=== PATIENT | female | born 1985 | race American Indian/Alaskan Native ===

== ENCOUNTER 2019-06-06 08:48 | Emergency (ER) | payer MEDICAID ==
[2019-06-06 08:52] VITALS: BP 147/89
[2019-06-06] MEDS ORDERED: IBUPROFEN PO ONE (09:26)
--- NOTE | 2019-06-06 09:28 | Emergency Department Report ---
ED Back Pain/Injury HPI - General Chief Complaint: Extremity Injury, Upper Stated Complaint: LT WRIST PAIN Time Seen by Provider: 06/06/19 09:22 Source: patient Limitations: No Limitations - History of Present Illness Initial Comments: 34 yo comes to er co left wrist pain w no trauma. hx carpel tunnel. - Related Data Previous Rx's Medication Instructions Recorded Last Taken Type Antipyrine/Benzocaine/Glycerin 2 drops AU Q4HR PRN #1 bottle 10/28/13 Unknown Rx [Auralgan] Ciprofloxacin HCl [Cipro] 500 mg PO Q12H #20 tab 10/28/13 Unknown Rx Ciprofloxacin HCl/Dexameth 4 drop OT BID #1 drops.susp 10/28/13 Unknown Rx [Ciprodex Otic Suspension 0.3/0.1%] Allergies Allergy/AdvReac Type Severity Reaction Status Date / Time No Known Allergies Allergy Verified 10/28/13 00:34 ED Review of Systems ROS: Stated complaint: LT WRIST PAIN Other details as noted in HPI Comment: All other systems reviewed and negative ED Past Medical Hx - Past Medical History carpel tunnel Family history: no significant family history - Social History Smoking Status: Current Every Day Smoker Alcohol use: rarely ED Back Pain Physical Exam - Exam General: Vital signs noted. No distress. Alert and acting appropriately. pos. sherin on exam of l hand pain over tendon with palpation rad/ulnar pulses plus 2 no parasthesis no snuff box tenderness rapid cap refill Back/Abdomen: No Abdominal Tenderness Neuro: Yes Normal Sensation, Yes Normal DTR's, Yes Normal Gait, No Motor Weakness ED Course Vital Signs 06/06/19 08:49 Temperature 98.3 F Pulse Rate 91 H Respiratory 14 Rate Blood Pressure 147/89 O2 Sat by Pulse 100 Oximetry ED Medical Decision Making - Medical Decision Making pt lost her wrist splint- thus she comes to ER this is a chronic issue no new trauma neurovasc intact dc home with soft splint to l wrist and ortho follow up. NSAIDs prn Vital Signs 06/06/19 08:49 Temperature 98.3 F Pulse Rate 91 H Respiratory 14 Rate Blood Pressure 147/89 O2 Sat by Pulse 100 Oximetry - Differential Diagnosis a/c wrist pain Critical care attestation.: If time is entered above; I have spent that time in minutes in the direct care of this critically ill patient, excluding procedure time. ED Disposition Clinical Impression: Carpal tunnel syndrome, Tendonitis Disposition: DC- TO HOME OR SELFCARE Is pt being admited?: No Does the pt Need Aspirin: No Condition: Stable Instructions: Carpal Tunnel Syndrome (ED) Additional Instructions: over the counter motrin for pain wrist splint during the day ice at night follow up with ortho MD referral below Referrals: MARVIN LIM MD [Staff Physician] - 3-5 Days Time of Disposition: 09:28
== END 2019-06-06 09:43 | disposition home or self-care (01) ==
LOC: ED 08:48
DX: G56.02 Carpal tunnel syndrome, left upper limb (principal); F17.200 Nicotine dependence, unspecified, uncomplicated; M77.9 Enthesopathy, unspecified

== ENCOUNTER 2021-11-03 16:32 | Emergency (ER) | payer MEDICAID ==
[2021-11-03 17:37] VITALS: BP 163/102
[2021-11-03] MEDS ORDERED: traMADol 50 MG TAB PO ONE (20:31)
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
[2021-11-03 23:13] LABS: HCG Qualitative,Urine Negative (Negative)
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
== END 2021-11-04 01:58 | disposition home or self-care (01) ==
LOC: ED 16:32
DX: S63.91XA Sprain of unspecified part of right wrist and hand, initial encounter (principal); S16.1XXA Strain of muscle, fascia and tendon at neck level, initial encounter; S39.012A Strain of muscle, fascia and tendon of lower back, initial encounter; E07.89 Other specified disorders of thyroid; Z79.899 Other long term (current) drug therapy; V87.7XXA Person injured in collision between other specified motor vehicles (traffic), initial encounter; Y93.89 Activity, other specified; Y92.488 Other paved roadways as the place of occurrence of the external cause; Y99.8 Other external cause status; F17.200 Nicotine dependence, unspecified, uncomplicated
CPT/HCPCS: 71046; 72040; 72100; 81025; 99283